=== PATIENT | female | born 1930 | race Caucasian/White ===

== ENCOUNTER 2020-07-25 23:47 | Observation (INO) ==
[2020-07-26] MEDS ORDERED: ACETAMINOPHEN 500 MG TABLET PO ONE ×2 (00:11→00:19)
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
[2020-07-26] MEDS ORDERED: MORPHINE SULFATE 2 MG/ML DISP.SYRIN IV ONE (01:48)
[2020-07-26] MEDS ORDERED: ONDANSETRON HCL/PF 2 MG/ML VIAL IV ONE (02:25)
[2020-07-26] MEDS ORDERED: MORPHINE SULFATE 2 MG/ML DISP.SYRIN IV PRN (03:44)
[2020-07-26] MEDS ORDERED: ONDANSETRON HCL/PF 2 MG/ML VIAL IV PRN (03:45)
[2020-07-26] MEDS: ACETAMINOPHEN 325 MG TABLET PO PRN ×4 (06:53→21:09)
--- NOTE | 2020-07-26 08:33 | CONS ---
[facility] - General Date of Service: 07/26/20 Narrative: Lynne is an 89-year-old female who sustained a ground-level fall tripping over her 's oxygen cords at home. She presented the emergency department last night. She was evaluated with right shoulder pain and found to have a proximal humerus fracture. I was contacted by the emergency department physician. I advised him I would see her as an outpatient today in clinic. After this conversation there was some concern of potential hip pain and an x-ray was obtained. There are some question to whether or not there is a fracture. She reports no hip pain to me at this point time. She reports mild to moderate right shoulder pain but she feels it is controlled. 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 Her son is they are currently assisting them. Source: patient - History of Present Illness Timing/Duration: 24 hours Severity: mild Allergies/Adverse Reactions: Allergies No Known Allergies Allergy (Verified 07/25/18 12:52) Home Medications: Home Medications Medication Instructions Recorded Last Taken lorazepam 2 mg tablet 1 mg PO HS 03/08/18 Unknown Lactobacillus Combination No.4 1 ea PO DAILY 07/25/20 Unknown [Probiotic] Sulfamethoxazole/Trimethoprim 1 tab PO BID 07/25/20 Unknown [Bactrim Ds] Procedures Insertion of intraocular lens prosthesis at time of cataract extraction, one- stage (05/23/10) Phacoemulsification and aspiration of cataract (05/23/10) Medications - Medications Current Medications: Current Medications Acetaminophen (Acetaminophen 325 Mg Tablet) 650 mg PO Q4H PRN PRN Reason: Mild pain (pain scale 1-3) Stop: 08/25/20 06:42 Last Admin: 07/26/20 06:53 Dose: 650 mg Documented by: Physical Examination - Exam Narrative: Local tenderness in the right shoulder with palpation. She has discomfort with range of motion of the right shoulder passively. She has no elbow pain with active or passive elbow range of motion she has no wrist pain in the right extremity with range of motion. She is neurovascular intact. X-rays reviewed show an impacted comminuted four-part proximal humerus fracture articulating surface appears maintained with no dislocation of the joint. Examination of right hip shows no pain with palpation. Hip range of motion I can flex her hip to 120 degrees without pain. I can internally rotate 20 degrees without pain I can externally rotate 60 degrees without pain. Patient was wanting to get up and move around and actually got out of bed on her own with me in the room as well as case management. She ambulated and reported no pain with ambulation. X-rays reviewed show some irregularity along the femoral head which appears to be a large osteophyte with no obvious fracture, underlying degenerative changes of the hip joint noted Vital Signs: Vital Signs - Last Taken Temp 36.9 C 07/26/20 06:12 Pulse 78 07/26/20 06:12 Resp 20 07/26/20 06:12 BP 118/70 07/26/20 06:12 Pulse Ox 97 07/26/20 06:12 O2 Oxygen Delivery Method Room Air Constitutional: Present: Alert, Oriented x3, Cooperative, No distress - Assessments/Findings (1) Closed fracture of right proximal humerus Diagnosis(s): Closed treatment of proximal humerus fracture. Patient is comfortable in a sling. I am okay regarding discharge and outpatient treatment of this problem. I would follow her back in a week for repeat x-rays in my office. 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 Clinically patient has no pain on exam in her right hip or with ambulation. She would like to get back home to her . We can follow her as an outpatient as she will be followed up with me next week for repeat films of her right shoulder. Problem: Acute
--- NOTE | 2020-07-26 09:22 | HPDIS ---
Chief Complaint - Chief Complaint Date of Service: 07/26/20 Time of Service: 08:49 Chief Complaint: Right arm and right hip pain History of Present Illness: 89-year-old female with a past medical history of anxiety and UTI presents from home status post fall. She states she tripped on her 's oxygen cord. She presented to the emergency room and was found to have a right shoulder x-ray showing a comminuted, displaced, impacted proximal right humerus fracture, hip x-ray was positive for a right mildly impacted minimally displaced femoral neck fracture. She was admitted for pain management Medical History (Last Updated 07/25/20 @ 23:56 by Elzbieta Zaman RN) Anxiety Urinary tract infection Surgical History: Surgical History (Last Reviewed 07/25/20 @ 23:56 by Elzbieta Zaman RN) History of tonsillectomy Onset Date: Unknown Family History: Family History (Last Reviewed 07/25/20 @ 23:56 by Elzbieta Zaman RN) Other No pertinent family history Social History: (Last Reviewed 07/25/20 @ 23:56 by Elzbieta Zaman RN) Social History: adopted: No foster care: No long-term: No Marital status: lives independently: Yes household members: spouse caregiver/support person: No current occupational status: retired Service: No Tobacco: Smoking Status: Never smoker Alcohol: alcohol intake: never Substance Use: substance use type: does not use Dietary Habits: caffeine: Yes Type: coffee Review Of Systems (GEN) - Review of Systems Generalized/Overall Review: Absent: Fever Respiratory: Absent: Shortness of Breath Cardiac: Absent: Chest Pain Abdominal: Absent: Abdominal Pain Musculoskeletal: Present: Joint Pain - Right hip, Other - Pain in right arm Misc: All systems neg except as marked Immunizations: IMMUNIZATION HX Immunizations Up to Date Yes History of Influenza Vaccine Yes Hx Pneumococcal Vaccination Yes Allergies/Adverse Reactions: Allergies Allergy/AdvReac Type Severity Reaction Status Date / Time No Known Allergies Allergy Verified 07/25/18 12:52 Home Medications: HOME MEDICATIONS lorazepam 2 mg tablet 1 mg PO HS 03/08/18 [Last Taken Unknown] Lactobacillus Combination No.4 [Probiotic] 1 ea PO DAILY 07/25/20 [Last Taken Unknown] Sulfamethoxazole/Trimethoprim [Bactrim Ds] 1 tab PO BID 07/25/20 [Last Taken Unknown] Acetaminophen [Tylenol] 650 mg PO Q4H PRN tab 07/26/20 [Last Taken Unknown] Exam - Exam Vital Signs: Vital Signs - Last Taken Temp 36.9 C 07/26/20 06:12 Pulse 78 07/26/20 06:12 Resp 20 07/26/20 06:12 BP 118/70 07/26/20 06:12 Pulse Ox 97 07/26/20 06:12 Constitutional: Present: Alert, Cooperative, Well developed, Well nourished, No distress, Elderly ENT Exam: Present: hearing grossly normal, moist mucous membranes Eye Exam: bilateral eye: normal inspection, EOMI Neck: Present: non-tender, supple. Absent: lymphadenopathy (R), lymphadenopathy (L) Respiratory: Present: lungs clear, no respiratory distress, no accessory muscle use, No wheezing. Absent: crackles, rhonchi Cardiovascular/Chest: Present: normal peripheral pulses, regular rate, rhythm, no edema, no murmur Peripheral Pulses: dorsalis-pedis (R): 1+, dorsalis-pedis (L): 1+ Abdomen: Present: Normal bowel sounds, soft, nontender Extremity: Present: no pedal edema, other Skin Exam: Present: normal color, warm/dry Neurologic: Present: alert, normal mood/affect Appearance: Present: appropriate appearance, appropriate insight Eye contact: Present: cooperative, good eye contact Thoughts: Present: normal thought pattern, normal mood /affect Diagnostic Studies: Laboratory Results SARS-CoV-2 (PCR) Not detected (NotDetected) 07/26/20 01:37 Assessment/Plan - Narrative Narrative: 89-year-old female with a past medical history of anxiety and UTI presents from home status post fall. She states she tripped on her 's oxygen cord. She presented to the emergency room and was found to have a right shoulder x-ray showing a comminuted, displaced, impacted proximal right humerus fracture, hip x-ray was positive for a right mildly impacted minimally displaced femoral neck fracture. She was admitted for pain management. Orthopedics has evaluated her and determined that she does not need surgery for either one of the fractures. They recommend wearing an arm sling and following up with Ortho on the outpatient side for repeat x-rays. She is able to ambulate with no difficulty and or so does not want to operate on the hip and will follow up with Ortho as an outpatient. Plan #1 continue with Tylenol as needed for pain management, she became hypoxic with morphine therefore I will avoid narcotics as much as possible. #2 continue with arm sling #3 okay to ambulate on the right hip #4 resume home medications for comorbidities #5 follow-up with Ortho as an outpatient The patient had some difficulty with ambulation with physical therapy so a CT of her right lower extremity was ordered. CT of the right lower extremity is positive for age indeterminant impacted subcapital right femoral neck fracture. The patient will not be discharged home today. She is in discussion with orthopedics regarding if she would like Ortho to place a pin in the femur prior to discharge. - Assessment/Plan (1) Closed fracture of right proximal humerus Problem: Acute Qualifiers: Encounter type: initial encounter (2) Nondisplaced fracture of neck of right femur Problem: Acute (3) Anxiety Problem: Chronic (1) Closed fracture of right proximal humerus Problem: Acute Qualifiers: Encounter type: initial encounter (2) Nondisplaced fracture of neck of right femur Problem: Acute (3) Anxiety Problem: Chronic Hospital Course: 89-year-old female with a past medical history of anxiety and UTI presents from home status post fall. She states she tripped on her 's oxygen cord. She presented to the emergency room and was found to have a right shoulder x-ray showing a comminuted, displaced, impacted proximal right humerus fracture, hip x-ray was positive for a right mildly impacted minimally displaced femoral neck fracture. She was admitted for pain management. Orthopedics has evaluated her and determined that she does not need surgery for either one of the fractures. They recommend wearing an arm sling and following up with Ortho on the outpatient side for repeat x-rays. She is able to ambulate with no difficulty and or so does not want to operate on the hip and will follow up with Ortho as an outpatient. Lynne Dia is homebound due to a right femoral neck fracture and right humerus fracture. The need for assisted is for monitoring of healing, and diagnosis management education. The need for home health care skilled services is directly related to the time spent [id number] with the person. The patient had some difficulty with ambulation with physical therapy so a CT of her right lower extremity was ordered. CT of the right lower extremity is positive for age indeterminant impacted subcapital right femoral neck fracture. The patient will not be discharged home today. She is in discussion with orthopedics regarding if she would like Ortho to place a pin in the femur prior to discharge. Procedures Performed: none Results and Findings: Lab Pending Results 07/26/20 01:37: SARS-CoV-2 (PCR) Not detected Discharge Location: Home Disposition: Home Health Service Home Health Agency: Other - Nurse at home Condition: Stable Discharge Activity: Activity as tolerated Discharge Diet: General/regular food Additional Patient Instructions (free text): Nurse at Home new at discharge- Nursing and PT. Please call [phone] with report and fax demographics, discharge summary, ortho consult, and discharge instructions to [phone]. Follow up with orthopedics in 1 week to repeat xrays. Follow up with in 7-10 days. Fax information to 's office. To set up meals to be delivered, please call . Complete Home Medications List: Complete Home Medication List: lorazepam 2 mg tablet 1 mg PO HS 03/08/18 Lactobacillus Combination No.4 [Probiotic] 1 ea PO DAILY 07/25/20 Sulfamethoxazole/Trimethoprim [Bactrim Ds] 1 tab PO BID 07/25/20 Acetaminophen [Tylenol] 650 mg PO Q4H PRN tab 07/26/20 Forms: Patient Portal Registration
[2020-07-26] MEDS ORDERED: ALPRAZolam 0.25 MG TABLET PO ONE (15:44)
--- NOTE | 2020-07-26 15:54 | PN ---
Subjective - Date and Time Seen Date: 07/26/20 Time: 15:50 Objective Objective Narrative: I did reexamine Lynne's right hip. With her lying in bed range of motion flexing her hip to 110 degrees with knee flexed no pain with external to 60 degrees and internal rotation to 30 degrees no pain. With palpating the inguinal area no pain. I did order a CT due to therapy is concerned that she was complaining of thigh pain in her leg not holding her with ambulating with them. CT reviewed with the radiologist showing age undetermined impacted subcapital hip fracture. No obvious evidence of effusion. 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 Salamanca and him reviewing CT there is concern that this fracture is remote. Discussed with case management and therapy will see how she does with ambulation over the next 24 to 48 hours weightbearing as tolerated right lower extremity with nursing and therapy. Will reassess tomorrow how she is doing.
[2020-07-26] MEDS ORDERED: LORazepam 1 MG TABLET PO SCH (21:00)
[2020-07-27] MEDS: ACETAMINOPHEN 325 MG TABLET PO PRN ×2 (04:44→11:18)
--- NOTE | 2020-07-27 09:12 | DS ---
(1) Closed fracture of right proximal humerus Problem: Acute Qualifiers: Encounter type: initial encounter (2) Nondisplaced fracture of neck of right femur Problem: Acute (3) Anxiety Problem: Chronic Hospital Course: 89-year-old female with a past medical history of anxiety and UTI presents from home status post fall. She states she tripped on her 's oxygen cord. She presented to the emergency room and was found to have a right shoulder x-ray showing a comminuted, displaced, impacted proximal right humerus fracture, hip x-ray was positive for a right mildly impacted minimally displaced femoral neck fracture. She was admitted for pain management. Orthopedics has evaluated her and determined that she does not need surgery for either one of the fractures. They recommend wearing an arm sling and following up with Ortho on the outpatient side for repeat x-rays. She is able to ambulate with no difficulty and or so does not want to operate on the hip and will follow up with Ortho as an outpatient. The patient had some difficulty with ambulation with physical therapy so a CT of her right lower extremity was ordered. CT of the right lower extremity is positive for age indeterminant impacted subcapital right femoral neck fracture. She remained hospitalized for one more day pending review of the CT by Ortho. Dr. Benitez determined that this was an old injury and there was no need for any surgical intervention. She is stable for discharge today. She is ambulating with a cane. She will go home with home health. Lynne Dia is homebound due to a right femoral neck fracture and right humerus fracture. The need for senior care is for monitoring of healing, and diagnosis management education. The need for physical therapy is for strengthening, range of motion, ADL teaching to be safe, gait/balance issues, mobility issues. The need for home health care skilled services is directly related to the time spent [id number] with the person. Procedures Performed: none Results and Findings: Lab Pending Results 07/26/20 01:37: SARS-CoV-2 (PCR) Not detected Discharge Location: Home Disposition: Home Health Service Condition: Stable Face to Face Encounter completed per [facility] Guidelines: Yes Discharge Activity: Activity as tolerated Discharge Diet: General/regular food Problem Oriented Discharge Instructions to Patient/Family: Humerus Fracture Treated With Immobilization, [id number] Additional Patient Instructions (free text): Nurse at Home new at discharge- Nursing and PT. Please call [phone] with report and fax demographics, discharge summary, ortho consult, and discharge instructions to [phone]. Follow up with orthopedics in 1 week to repeat xrays. Follow up with in 7-10 days. Fax information to 's office. To set up meals to be delivered, please call . Complete Home Medications List: Complete Home Medication List: lorazepam 2 mg tablet 1 mg PO HS 03/08/18 Lactobacillus Combination No.4 [Probiotic] 1 ea PO DAILY 07/25/20 Sulfamethoxazole/Trimethoprim [Bactrim Ds] 1 tab PO BID 07/25/20 Acetaminophen [Tylenol] 650 mg PO Q4H PRN tab 07/26/20 Forms: Patient Portal Registration
[2020-07-27 14:10] VITALS: BP 135/56
== END 2020-07-27 13:32 | disposition home health service (06) ==
LOC: MS 23:47 → ER 23:47 → MS 07-26 04:36
PROVIDERS: ADMIT Internal Medicine; ATTEND Internal Medicine
DX: F41.9 Anxiety disorder, unspecified; M25.551 Pain in right hip; S42.251A Displaced fracture of greater tuberosity of right humerus, initial encounter for closed fracture; W19.XXXA Unspecified fall, initial encounter; S72.011A Unspecified intracapsular fracture of right femur, initial encounter for closed fracture; M25.511 Pain in right shoulder